=== PATIENT | male | born 1970 | race American Indian/Alaskan Native ===

== ENCOUNTER 2019-05-16 11:04 | Day surgery (SDC) | payer OTHER ==
[2019-05-16] MEDS ORDERED: SODIUM CHLORIDE 0.9% 1000 ML 1,000 ML IV SCH (12:00)
--- NOTE | 2019-05-16 12:04 | Anesthesia Day of Surgery ---
Anesthesia Day of Surgery - Day of Surgery Patient Examined: Yes Patient H&P Reviewed: Yes Patient is NPO: Yes
--- NOTE | 2019-05-16 12:05 | Anesthesia Consultation ---
Anesthesia Consult and Med Hx Date of service: 05/16/19 - Airway Anesthetic Teeth Evaluation: Good ROM Head & Neck: Adequate (Cervical HNP) Mental/Hyoid Distance: Adequate Mallampati Class: Class II Intubation Access Assessment: Probably Good - Pre-Operative Health Status ASA Pre-Surgery Classification: ASA2 Proposed Anesthetic Plan: MAC - Central Nervous System Hx Psychiatric Problems: Yes (Anxiety/Depression/PTSD) - Other Systems Hx Substance Use: Yes (MARISOL)
[2019-05-16] MEDS ORDERED: LIDOCAINE MPF (2%) 20 MG/1 ML VIAL 5 ML ONE (13:00)
[2019-05-16] MEDS ORDERED: MIDAZOLAM 2 MG/2 ML INJ IV NR (13:00)
[2019-05-16] MEDS ORDERED: PROPOFOL 200 MG/20 ML VIAL IV ONE ×2 (13:53)
[2019-05-16] MEDS ORDERED: WATER FOR IRRIG STERILE 250 ML BOTTLE IR ONE (13:56)
--- NOTE | 2019-05-16 14:28 | Procedure Note ---
Date of procedure: 05/16/19 Pre-op diagnosis: Colon Polyp Screening Post-op diagnosis: other (Multiple,Small Rectal Polyps (possibly Hyperplastic)/ Minor,Left Colon Diverticuli/ Minor,Internal Hemorrhoid) Procedure: Colonoscopy with Cold Biopsy Anesthesia: MAC Surgeon: BRENDA HARRIS Estimated blood loss: minimal Pathology: list Specimen disposition: to lab Condition: stable Disposition: same day (Encourage fiber intake. Avoid aspirin and NSAID for 4 days; otherwise resume home medication and follow up in 1 to 2 weeks ([phone]).)
--- NOTE | 2019-05-16 14:33 | Operative Report ---
PROCEDURE: Colonoscopy with biopsy. INDICATIONS: This is a 48-year-old -[place] gentleman who has a history of posttraumatic stress disorder. No family history of cancer. Colonoscopy was done as part of colon polyp screening. DESCRIPTION OF PROCEDURE: Procedure was done after getting informed consent with MAC anesthesia. Initial rectal exam was unremarkable. Instrument was passed through the rectum onto the cecum, which was identified with the ileocecal valve and the appendiceal orifice. The cecum was also visualized on the retroverted view, which appeared to show no additional pathology. Cecum, ascending colon, transverse colon showed normal mucosa. A few minor diverticula were noted in the left colon and a few small rectal polyps were noted that were removed by cold biopsy and the rectum showed minor internal hemorrhoid on the retroverted view. There was minimal bleeding from the biopsy sites. No complications associated with the procedure. ASSESSMENT: Colon polyp screening. Minor left colon diverticula, minor internal hemorrhoid. Multiple small rectal possibly hyperplastic polyps. PLAN: 1. The patient will be asked to avoid aspirin and aspirin-related products for the next few days. 2. Encourage the patient to take fiber supplements and resume home medications other than for aspirin and aspirin-related products and follow up in the office in 1-2 weeks' time. The procedure was done in the GI lab with assistance of the GI lab team, which included DESTINY Camarillo as well as Mandeep rivera and assistance of Anesthesia. JOB# [id number] KATE/MISTY
[2019-05-16 14:47] VITALS: BP 118/73
--- NOTE | 2019-05-16 17:23 | Post Anesthesia Evaluation ---
- Post Anesthesia Evaluation Patient Participated: Yes Airway Patent: Yes Stable Respiratory Function: Yes Nausea/Vomiting: No Temp > 96.8F: Yes Pain Manageable: Yes Adequeate Hydration: Yes Anesthesia Complications: No
== END 2019-05-16 11:05 | disposition home or self-care (01) ==
LOC: GIO 11:04
DX: Z12.11 Encounter for screening for malignant neoplasm of colon (principal); K62.1 Rectal polyp; K57.30 Diverticulosis of large intestine without perforation or abscess without bleeding; M19.90 Unspecified osteoarthritis, unspecified site; Z79.899 Other long term (current) drug therapy; Z98.890 Other specified postprocedural states
CPT/HCPCS: 45380; 88305; J2250; J2704; J7030